=== PATIENT | female | born 1960 | race Asian ===

== ENCOUNTER 2023-04-30 08:23 | Emergency (ER) | payer BC, OTHER ==
[~2023-04-30] VITALS: Ht 142.2 cm; Wt 50.9 kg
[2023-04-30 08:25] VITALS: TEMP 98
[2023-04-30] MEDS ORDERED: LOSA-381 PO (08:31)
[2023-04-30] MEDS ORDERED: AMLO-258 PO (08:31)
[2023-04-30 08:55] VITALS: BP 124/78; PULSE 83; RESP 18
== END 2023-04-30 09:09 | disposition home or self-care (01) ==
LOC: EMS 08:27
DX: I10 Essential (primary) hypertension (principal); F41.9 Anxiety disorder, unspecified; E78.00 Pure hypercholesterolemia, unspecified; Z98.890 Other specified postprocedural states
CPT/HCPCS: 99281; Z7502

== ENCOUNTER 2024-01-09 11:57 | Emergency (ER) | payer BC, OTHER ==
[~2024-01-09] VITALS: Ht 154.9 cm; Wt 59.1 kg
[~2024-01-09 11:57] MED LIST: AMLO-258 PO; LOSA-381 PO
[2024-01-09 12:02] VITALS: BP 157/71; PULSE 70; RESP 18; TEMP 98.1
[2024-01-09] MEDS ORDERED: AMLO2.5T29 PO (12:10)
[2024-01-09 12:38] LABS: BASOPHILS % (AUTO) 0.6 % (0.0-2.0); EOSINOPHILS % (AUTO) 4.9 % (1.0-6.0); HEMATOCRIT 38.4 % (36-46); HEMOGLOBIN 12.6 g/dL (12.0-16.0); LYMPHOCYTES # (AUTO) 1.9 K/uL (1.0-4.8); LYMPHOCYTES % (AUTO) 37.6 % (22.0-44.0); MEAN CORPUSCULAR HEMOGLOBIN 30.4 pg (26.0-34.0); MEAN CORPUSCULAR HGB CONC 32.8 G/dL (31.0-37.0); MEAN CORPUSCULAR VOLUME 93 fL (80-100); MONOCYTES # (AUTO) 0.4 K/uL (0.1-1.0); MONOCYTES % (AUTO) 7.5 % (2.0-9.0); NEUTROPHILS # (AUTO) 2.5 K/uL (1.8-7.7); NEUTROPHILS % (AUTO) 49.4 % (40.0-70.0); PLATELET COUNT (AUTO) 290 K/uL (150-450); RED BLOOD CELL COUNT(AUTO) 4.15 MIL/uL (4.00-5.20); RED CELL DISTRIBUTION WIDTH 14.1 % (11.5-14.5); WHITE BLOOD COUNT (AUTO) 5.1 K/uL (4.5-11.0)
[2024-01-09 12:48] LABS: ANION GAP 6 mmol/L (8-16); CARBON DIOXIDE 30 mmol/L (22-29); CHLORIDE 94 mmol/L (98-107); CREATININE 0.66 mg/dL (0.60-1.30); GLOMERULAR FILTR. RATE CALC > 60 mL/min (>60); GLUCOSE,RANDOM 109 mg/dL (70-110); POTASSIUM 4.3 mmol/L (3.5-5.1); SODIUM SERUM 130 mmol/L (136-145); UREA NITROGEN, BLOOD 10 mg/dL (7-18)
[2024-01-09 13:03] LABS: TROPONIN I-HIGH SENSITIVITY Less Than 4 ng/L (<51)
[2024-01-09] MEDS ORDERED: LOSA-381 PO (14:19)
[2024-01-09] MEDS ORDERED: AMLO2.5T96 PO (14:19)
== END 2024-01-09 15:08 | disposition home or self-care (01) ==
LOC: EMS 11:57
DX: R51.9 Headache, unspecified (principal); I10 Essential (primary) hypertension
CPT/HCPCS: 80048; 84484; 85025; 93005; 99284